=== PATIENT | male | born 1960 | race Caucasian/White ===

== ENCOUNTER 2018-05-03 11:26 | Inpatient (IN) | payer MEDICARE ==
[2018-05-03 11:26] VITALS: BMI 18.4
--- NOTE | 2018-05-03 12:27 | C.PDOC ---
History Of Present Illness 57 year old male, with no significant PMHx, presents to ED for evaluation of right scrotal swelling and pain associated with discharge of pus for the last 5- 6 days. He denies fever, chills, abnormal urethral discharge, nausea, vomiting, or abdominal pain. Time Seen by Provider: 05/03/18 11:57 Chief Complaint (Nursing): Abnormal Skin Integrity History Per: Patient History/Exam Limitations: no limitations Past Medical History Reviewed: Historical Data, Nursing Documentation, Vital Signs Vital Signs: Last Vital Signs Temp 98.7 F 05/03/18 11:48 Pulse 66 05/03/18 11:48 Resp 18 05/03/18 11:48 BP 102/67 05/03/18 11:48 Pulse Ox 98 05/03/18 12:32 - Medical History PMH: Seizures Denies: Chronic Kidney Disease - [facility] Procedures EXC LES SOFT TISSUE NEC (06/16/15) Family History: States: Unknown Family Hx - Social History Hx Tobacco Use: Yes Hx Alcohol Use: No Hx Substance Use: No Review Of Systems Except As Marked, All Systems Reviewed And Found Negative. Constitutional: Negative for: Fever, Chills Genitourinary: Positive for: Scrotal Pain (right) Physical Exam - Physical Exam Additional Physical Exam Comments: Constitutional: No acute distress. Head: Normocephalic. Atraumatic. Eyes: PERRL. ENT: Moist mucous membranes. Neck: Supple. Cardiovascular: Regular rate. Radial pulse 2+ bilaterally. Chest: No tenderness. Respiratory: Clear to auscultation bilaterally. GI: Soft. Nontender. Nondistended. : Right scrotal ulceration without active discharge. Tender and indurated right scrotum. Back: No CVA tenderness. Musculoskeletal: No tenderness or swelling of extremities. Skin: No rash. Neurologic: Alert, no focal deficit ED Course And Treatment - Laboratory Results Result Diagrams: 05/03/18 12:32 05/03/18 12:32 O2 Sat by Pulse Oximetry: 98 Medical Decision Making Medical Decision Making: Case discussed with Dr. Brady who accepts patient under his service. Spoke with Dr. Guidry who accepts consultation for I & D. Disposition Discussed With : Vinny Guidry Doctor Will See Patient In The: Hospital - Disposition Disposition: HOSPITALIZED Disposition Time: 13:02 Condition: FAIR Forms: [facility] (Eth[place]ian) - Clinical Impression Clinical Impression: Scrotal abscess - Scribe Statement The provider has reviewed the documentation as recorded by the Scribe KP All medical record entries made by the Scribe were at my direction and personally dictated by me. I have reviewed the chart and agree that the record accurately reflects my personal performance of the history, physical exam, medical decision making, and the department course for this patient. I have also personally directed, reviewed, and agree with the discharge instructions and disposition.
[2018-05-03 12:36] LABS: BASO % 0.7 % (0.0-2.0); EOS # 0.1 K/uL (0.0-0.7); HEMOGLOBIN 14.7 g/dL (12.0-18.0); LYMPH # 2.4 K/uL (1.0-4.3); LYMPH % 44.5 % (20.0-40.0); MEAN CELL VOLUME 93.4 fL (80.0-94.0); MEAN CORPUSCULAR HEMOGLOBIN 32.5 pg (27.0-31.0); MEAN CORPUSCULAR HGB CONC 34.8 g/dL (33.0-37.0); MEAN PLATELET VOLUME 8.1 fL (7.2-11.7); MONO # 1.2 K/uL (0.0-0.8); MONO % 23.5 % (0.0-10.0); NEUT # 1.6 K/uL (1.8-7.0); NEUT % 29.3 % (50.0-75.0); NRBC % 0.1 % (0.0-2.0); PLATELET COUNT 213 K/uL (130-400); RBC 4.52 Mil/uL (4.40-5.90); RED CELL DISTRIBUTION WIDTH 13.4 % (11.5-14.5); WHITE BLOOD COUNT 5.3 K/uL (4.8-10.8)
[2018-05-03 12:46] LABS: INR 1.1; PROTHROMBIN TIME 12.5 SECONDS (9.7-12.2)
[2018-05-03 12:55] LABS: URINE BILIRUBIN NEGATIVE (NEGATIVE); URINE BLOOD NEGATIVE (NEGATIVE); URINE CLARITY Clear (Clear); URINE COLOR Yellow (YELLOW); URINE GLUCOSE (UA) NORMAL (Normal); URINE LEUKOCYTE ESTERASE NEG Leu/uL (Negative); URINE PROTEIN NEGATIVE (NEGATIVE); URINE UROBILINOGEN NORMAL mg/dL (0.2-1.0)
[2018-05-03 12:59] LABS: ALB/GLOB RATIO 1.4 (1.0-2.1); ALBUMIN 4.5 g/dL (3.5-5.0); ALT/SGPT 28 U/L (21-72); AST/SGOT 19 U/L (17-59); BLOOD UREA NITROGEN 11 mg/dL (9-20); CALCIUM 9.4 mg/dl (8.6-10.4); GFR NON-AFRICAN AMERICAN > 60
[2018-05-03 13:08] LABS: BANDS 1 % (0-2); EOSINOPHIL 2 % (0-4); LYMPHOCYTE 48 % (20-40); MONOCYTE 16 % (0-10); NEUTROPHIL 32 % (50-75); PLATELET ESTIMATE NORMAL (NORMAL); REACTIVE LYMPHOCYTES 1 % (0-0); TOTAL CELLS COUNTED 100
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
[2018-05-03] MEDS ORDERED: Piperacillin/Tazobact 3.375 GM in Sodium Chloride 100 ML IVPB SCH (16:30)
[2018-05-03] MEDS ORDERED: Propofol 10 mg/ml Inj (20 ML) ONE (16:34)
[2018-05-03] MEDS ORDERED: ceFAZolin IV 1 gm in Dextrose 2 GM/100 ML BAG IVPB ONE (16:54)
[2018-05-03] MEDS ORDERED: Vancomycin 1 gm/NS 200 ml 1 GM/200 ML BAG IVPB SCH (17:00)
[2018-05-03] MEDS ORDERED: HYDROmorphone 0.5 mg/0.5 ml ISec IVP PRN (17:04)
[2018-05-03 18:27] VITALS: RESP 12; O2SAT 100
[2018-05-03 18:29] VITALS: BP 103/59; PULSE 53; TEMP 97.2
[2018-05-04] MEDS ORDERED: Pantoprazole 40 mg EC Tab PO SCH (10:00)
--- NOTE | 2018-05-22 00:49 | OP ---
Copied To: Vinny Guidry MD Attending MD: Vinny Guidry MD PROCEDURE DATE: 05/03/2018 PREOPERATIVE DIAGNOSIS: Infected scrotal mass and abscess. POSTOPERATIVE DIAGNOSIS: Infected scrotal mass and abscess. PROCEDURE PERFORMED: Wide and deep excision of infected scrotal mass with partial tissue transfer closure. SURGEON: Vinny Guidry MD ANESTHESIA: General. BLOOD LOSS: 20 mL. POSTOPERATIVE CONDITION: Stable. INDICATION FOR SURGERY: This is a 57-year-old male with a large right scrotal and inguinal mass consistent with an infected mass and possible abscess who now will undergo excision and partial closure. DESCRIPTION OF PROCEDURE: The patient was taken to the operating room, general anesthesia was administered. The right groin and scrotal area was prepped and draped. A generous elliptical incision was made. The mass was completely excised. Bleeding was controlled using the Bovie. Full-thickness tissue flaps were raised with counter incisions and a partial tissue transfer closure of 20 sq cm was performed. The central portion of the wound was packed open with wet saline gauze. The patient tolerated the procedure well. Returned to recovery room in stable condition. Vinny Guidry MD
== END 2018-05-03 21:00 | disposition left against medical advice (07) | DRG 728 ==
LOC: C.ER 11:26 → C.9E 13:01 → C.3T 13:46
PROVIDERS: ADMIT Internal Medicine Pulmonary Disease; ATTEND Internal Medicine Pulmonary Disease
PROC: 0VB50ZZ Excision of Scrotum, Open Approach (ICD-10-PCS; principal; 2018-05-03 17:00)
DX: N49.2 Inflammatory disorders of scrotum (principal); G40.909 Epilepsy, unspecified, not intractable, without status epilepticus; F17.210 Nicotine dependence, cigarettes, uncomplicated; B95.61 Methicillin susceptible Staphylococcus aureus infection as the cause of diseases classified elsewhere